=== PATIENT | male | born 1975 | race Caucasian/White ===

== ENCOUNTER 2016-08-18 11:10 | Day surgery (SDC) | payer OTHER ==
[2016-08-18] VITALS (16 sets, daily range): BP systolic 127–175; BP diastolic 54–87; PULSE 82–97; RESP 12–20; O2SAT 90–98
[~2016-08-18] VITALS: Ht 180.3 cm; Wt 135.0 kg
[2016-08-18] MEDS: CeFAZolin Inj 3 GM in IV Premix 1 EACH IV SCH ×2 (06:00→13:34)
--- NOTE | 2016-08-18 07:02 | PCM.HPANE ---
Patient Data Surgeon Admitting Provider: Attending Provider:Devaughn Nixon MD Primary Care Physician:Lore Gore MD Other Provider:Wendy Sorto Anesthesia Reason for Visit Gallstones Ht/WT & BMI Height (Feet): 6 Height (Inches): 0 Weight (Kilograms): 129.27 Body Mass Index 38.00 Allergies Coded Allergies: exenatide (Verified Allergy, Severe, pancreatitis, 08/15/16) Past Anesthesia History Anesthesia History: Denies:: Abnormal Airway, Anesthesia Reactions, Difficult Intubation, Fam Anesthesia Reaction, Fam Malignant Hypertherm, Malignant Hyperthermia Additional Information: Wakes up fighting and swinging fists per patient' Diabetes History Hx Diabetes?: Yes Type of Diabetes: Type II Glycemic Control: Insulin & Oral Medication MRSA MRSA: No Medications Reported Medications Diltiazem 120 Mg Mulgph602 Mg PO TID 03/07/16 Insulin Glargine (Lantus U100 Insulin Vial)100 Unit/Ml Vial90 Unit SUBQ Ref 0 09/01/15 Fenofibrate 150 Mg Ijuqwtv067 Mg PO DAILY 08/03/[address] 40 Mg Tablet.dr40 Mg PO DAILY Ref 0 12/08/14 Lisinopril / HCTZ 20-12.5 mg 1 Each Tablet1 Each PO DAILY Ref 0 12/08/14 [Vit C] No Conflict Ebaak011 Mg PO BID 12/08/14 [Vit D] No Conflict Check10,000 Iu PO DAILY 12/08/14 Aspirin 81 Mg Rzdzfg26 Mg PO DAILY Ref 0 12/08/14 Albuterol HFA (Proair HFA)8.5 Gm Hfa.aer.ad2 Puffs INHALATION Q4H 12/08/14 Albuterol Neb Soln 0.63 Mg/3 Ml Vial.neb0.63 Mg INHALATION Q4H PRN For Wheezing Ref 0 12/08/14 Atorvastatin (Lipitor)40 Mg Rgvobm19 Mg PO DAILY Ref 0 12/08/14 Metformin 500 Mg Tablet1,000 Mg PO BID Ref 0 12/08/14 Insulin Glargine (Lantus U100 Insulin Vial)100 Unit/Ml Vial60 Unit SUBQ BIDAC # 1 VIAL Ref 0 12/08/14 Insulin Lispro (HumaLOG U100 Insulin Pen)100 Unit/1 Ml Insuln.pen35 Unit SUBQ TIDWM Ref 0 Blood Sugar Lispro Correction <151 0 units 151-175 1 unit 176-200 2 units 201-225 3 units 226-250 4 units 251-275 5 units 276-300 6 units 301-325 7 units 326-350 8 units 351-375 9 units 376-400 10 units >400 12 units Check blood sugars before meals and at bedtime. Use correction factor only before meals. 12/08/14 History History of ENT Problems?: Yes HEENT History: Positive for:: Hearing Problem (OTITIS MEDIA, RIGHT SIDE) Sinus Problem (ALLERGIC RHINITIS) Denture Type: None Teeth Condition: Within Normal Limits Hx of Heart Problems?: Yes Cardiovascular History: Positive for:: Coronary Artery Disease (ELEVATED CHLORESTEROL) Hypertension Denies:: Pacemaker Hx of Respiratory Problem?: Yes Respiratory History: Positive for:: Asthma (EXCERCISE INDUCED) Use of Inhalers / NEBS Denies:: Pneumonia (HX OF BRONCHITIS) Use of C-PAP Machine (HAS APPT FOR SLEEP STUDY) Hx Neurologic Problems?: Yes Neurological History: Positive for:: Dizziness Hx of GI Problems?: No Hx of Problems?: No Male Hx: Denies:: Prostate Problems Scrotal Mass Testicular Surgery Skin History: Positive for:: History Skin Disorders? (SARCODOSIS in remission) Hx Musculoskeletal Problems?: Yes Musculoskeletal History: Positive for:: Musculoskeletal Trauma Osteoarthritis Hx of Psycho/Social Problems?: No Hx Surgeries?: Yes (SEE ABOVE) Hx Any Other Health Problems?: Yes Other History: Positive for:: Hospitalization (RIGHT CALF 1984,LEFT [id number] HAND 2001) Denies:: Cancer Endocrine Disease Hx Diabetes: Yes Hx Alcohol Use: Yes (VERY LITTLE)Hx Substance Use: No Smoking Status: Former Smoker Have You Smoked inLast 12 mo: No Stop/Bang S-Snoring: Do You Snore Loudly: Yes T-Tired: feel tired, fatigued: Yes O-Obsered: Observed not breath: Yes P-Blood Pressure: treated: Yes B- Body Mass Index > 35 kg/m2: No A- Age over 50: No N- Neck Large Circumference: No G- Gender Male: Yes IRENE Total Score: 5 Risk Assessment Category Category 1A: Patient has history of documented sleep apnea, and HAS NOT received any narcotic, sedative or anesthesia administration during this stay. Category 1B: Patient has history of documented sleep apnea, and HAS received any narcotic , sedative or anesthesia administration during this stay Category 2: Patient has SUSPECTED Obstructive Sleep Apnea, and HAS received any narcotic , sedative or anesthesia administration during this stay. Category 3: Patient has SUSPECTED Obstructive Sleep Apnea and HAS NOT received narcotic, sedative or anesthesia administration during this stay. Category 4: Outpatient in Procedural Areas with known sleep apnea or who screen positive for High Risk via the STOP/BANG questionnaire. Exam Exam General Appearance: Alert, Oriented X3, Cooperative, Moderate Distress HEENT/AIRWAY: MP 4, Neck Movement (Thick, 10% expected extension), Mouth Opening (Small) Lungs: Clear to Auscultation Heart: Exam Unremarkable Plan Impression Patient chart reviewed, patient interviewed and anesthestic plan with risks, benefits, and alternatives discussed, and informed consent obtained. NPO per Anesth. Guidelines: Yes ASA Physical Status: ASA3 Severe Disease Anesthetic Support Modalities: [place] Scope Anesthetic Plan: GA Bene/Risks/Altern/Consents: Yes HP Complete Prior to Induction: Yes Other [place] Scope will be set up in Room. If EZ to ventilate will do a Direct Laryngoscopy and chart the findings. Lee Bloom MD August 18, 2016 07:02
[~2016-08-18 11:10] MED LIST: ALBU0.63 INHALATION; ALBU8.5H2 INHALATION; ASPI-973 PO; DILT120T3 PO; FENO150C4 PO; INSU100I18 SUBQ; INSU100V7 SUBQ; LIP40 PO; LISI1TAB9 PO; Lactated Ringer's 1,000 ML IV SCH; METF500T4 PO; PANT40TA3 PO; VIT C PO; VIT D PO
[2016-08-18] MEDS ORDERED: Propofol 10,000 mCg/mL 20 mL Inj ONE (11:11)
[2016-08-18] MEDS ORDERED: Rocuronium 10 mg/mL 5 mL Inj ONE (11:11)
[2016-08-18] MEDS ORDERED: MeTOProlol 1 mg/mL 5 mL Inj ONE (11:11)
[2016-08-18] MEDS ORDERED: Neostigmine 1 mg/mL 10 mL Inj ONE (11:11)
[2016-08-18] MEDS ORDERED: Glycopyrrolate 0.2 MG/ML 1mL Inj ONE (11:11)
[2016-08-18] MEDS ORDERED: fentaNYL-PF 50 mCg/mL 2 mL Inj ONE ×2 (11:11→17:02)
[2016-08-18] MEDS ORDERED: LORazepam 1 mg Tablet PO PRN (12:30)
[2016-08-18] MEDS ORDERED: Lactated Ringer's 1,000 ML IV ONE (13:00)
[2016-08-18] MEDS ORDERED: Bupivacaine-MPF 0.25%/EPI 30 mL Inj INFILTRATE ONE (13:34)
[2016-08-18] MEDS ORDERED: Lactated Ringer's 500 ML IV PRN (13:56)
[2016-08-18] MEDS ORDERED: Lactated Ringer's 1,000 ML IV SCH (13:56)
[2016-08-18] MEDS ORDERED: Ondansetron 2 mg/mL 2 mL Inj IVPUSH PRN (14:00)
[2016-08-18] MEDS ORDERED: HYDROmorphone 1 mg/mL Inj IVPUSH PRN (14:00)
[2016-08-18] MEDS ORDERED: EPHEDrine Sulfate 50 mg/mL Inj IVPUSH PRN (14:00)
[2016-08-18] MEDS ORDERED: Atropine 0.4 mg/mL Inj IVPUSH PRN (14:00)
[2016-08-18] MEDS ORDERED: hydrALAZINE 20 mg/mL Inj IVPUSH PRN (14:00)
[2016-08-18] MEDS ORDERED: Labetalol 5 mg/mL 4 mL Inj IV PRN (14:00)
[2016-08-18] MEDS ORDERED: Phenylephrine 10,000 mCg/mL Inj IVPUSH PRN (14:00)
--- NOTE | 2016-08-18 15:24 | PCM.ANEP1 ---
Post Anesthesia PACU Phase 1 Assessment Vital Signs Vital Signs Date Time Temp Pulse Resp B/P Pulse Ox O2 Delivery O2 Flow Rate FiO2 08/18/16 12:21 36.8 82 18 134/70 95 Room Air Anesthetic Administered: GA Level of Alertness: Awake, talking REAL's with Equal Strength: Yes Pain: No Nausea or Vomiting: No CV Function & Hydration Stable: No Airway Device: Oxygen Delivery: Room Air Lungs: Normal Air Movement PACU Phase 2 Assessment Complications: No Follow up Care: No Patient Instructions Provided: N/A Lee Bloom MD August 18, 2016 15:24
--- NOTE | 2016-08-18 15:29 | OP ---
[address] [address] OPERATIVE REPORT PATIENT: ZEFERINO CHOWDHURY : 1975 MR#: [id number] ADMIT: 08/18/2016 JOB ID: [id number] DATE OF SURGERY: 08/18/2016 ANESTHESIA: General. PREOPERATIVE DIAGNOSIS(ES): 1. Symptomatic cholelithiasis. 2. Obesity. 3. Uncontrolled diabetes. POSTOPERATIVE DIAGNOSIS(ES): 1. Symptomatic cholelithiasis. 2. Obesity. 3. Uncontrolled diabetes. 4. Nodular cirrhosis of the liver. OPERATION: 1. Laparoscopic cholecystectomy. 2. Laparoscopic liver biopsy. SURGEON: Dr. Devaughn Nixon. HOT STICK MAN: Nabeel Grider PA-C (the expanded function dental assistant was required for the safe and timely completion of the case). COMPLICATIONS: None. ESTIMATED BLOOD LOSS: Less than 5 mL. CONDITION: Satisfactory. SPECIMEN: 1. Gallbladder. 2. Core needle biopsy of the liver. FINDINGS: The gallbladder appeared relatively unremarkable. The liver was grossly nodular consistent in appearance with cirrhosis. INDICATIONS/SIGNIFICANT HISTORY: The patient is an obese man with a BMI of 42 and poorly controlled diabetes with a hemoglobin A1c greater than 11 who has been experiencing postprandial right upper quadrant abdominal pain. He underwent an ultrasound which demonstrated cholelithiasis. At one point, he was scheduled for a laparoscopic cholecystectomy at another facility for concern of acute cholecystitis but this was canceled due to blood sugar of over 300. He was eventually referred to me as an outpatient and I recommended laparoscopic cholecystectomy. OPERATIVE TECHNIQUE: The patient was taken into the operating room and placed in the supine position. General anesthesia was administered and perioperative antibiotics were given. Insulin was also administered for an elevated blood sugar. The abdomen was prepped and draped in a standard surgical fashion and a procedural pause was performed. Entry was gained into the abdomen through a supraumbilical incision using a 10 mm Optiview trocar. Pneumoperitoneum was achieved without complication. Local anesthetic was injected, followed by insertion of 5 mm ports in the subxiphoid as well as two in the right upper quadrant. The gallbladder was a little distended and therefore, we aspirated this to facilitate grasping it. I then began my dissection to identify the cystic structures. Eventually a critical view of safety was achieved. A single clip was placed on the cystic artery and three on the cystic duct. The artery was taken with cautery and the duct was taken sharply. A small hole was made in the gallbladder while dissecting the gallbladder off the cystic plate and a small amount of bile drained. The remainder of the dissection of the gallbladder off the cystic plate was then completed and the gallbladder placed in an EndoCatch bag. The surgical bed was copiously irrigated and cleaned. The gallbladder was removed through the umbilical port site. I then made a small stab incision in the right upper quadrant over the liver and used a 14-gauge Avery-Cut needle. Biopsy was taken in two passes to get two cores. The liver surface bleeding was controlled using electrocautery. The fascia at the umbilical port site was then closed using 0 PDS suture with laparoscopic suture passer. The lateral ports removed under direct visualization followed by release of pneumoperitoneum and removal of the remaining port. The entire procedure was well tolerated without complication.
[2016-08-18] MEDS: fentaNYL-PF 50 mCg/mL 2 mL Inj IVPUSH PRN ×2 (17:08→17:26)
[2016-08-18] MEDS: oxyCODONE-Acetamin 5-325 mg Tablet PO PRN ×2 (17:14→21:34)
--- NOTE | 2016-08-18 18:06 | NUR ---
Post-Op Note Pt transferred from PACU via thad to [facility] Rm 1017. Report received from Racquel BENITEZ from PACU. Pt able to transfer self to hospital bed. Oxygen at 4L NC. Pain reported at 06/03. IV SL. Pt AAOX3, VSS, continuous pulse ox. Addendum: 08/18/16 at 1814 by LAILA KELLEY Pt arrived at approx. 1745. Addendum: 08/18/16 at 1819 by PARK ROCA RN Agree w/ above SN2 note
[2016-08-18] MEDS ORDERED: Albuterol 1.25 mg/3 mL Inhalation Solution NEB PRN (18:30)
[2016-08-18] MEDS: Albuterol 2.5 mg/3 mL Inhalation Solution NEB SCH ×2 (19:00→23:00)
[2016-08-18] MEDS ORDERED: Insulin GLARgine 100 Unit/mL Syringe SUBQ SCH (21:00)
[2016-08-18] MEDS: Ascorbic Acid 500 mg Tablet PO SCH (21:03)
[2016-08-18] MEDS: Insulin LISPRO High-Dose Scale SUBQ SCH (21:21)
[2016-08-19 00:37] VITALS: BP 148/80; PULSE 89; RESP 20; O2SAT 97
--- NOTE | 2016-08-19 03:28 | NUR ---
Activity/ MD paged During shift rounding, day shift RN and this RN discussed with pt. about if wanting to stay the night. Pt. and significant other agreed to stay the night. Hussain notified and paged. Pt. was able to be weaned down on 2 liters of oxygen via nc. Becomes apneic while sleeping on RA, so left on 2 liters of oxygen via nc while asleep. Pt. reported 6/10 pain earlier in shift. 1 tab Percocet PO given. Significant other in room. Will continue to monitor.
[2016-08-19] MEDS: oxyCODONE-Acetamin 5-325 mg Tablet PO PRN ×2 (04:14→08:53)
[2016-08-19] MEDS: Albuterol 2.5 mg/3 mL Inhalation Solution NEB SCH ×2 (04:43→07:43)
[2016-08-19 04:44] VITALS: PULSE 63; RESP 18; O2SAT 98
[2016-08-19 04:55] VITALS: BP 162/84; PULSE 91; RESP 17; O2SAT 97
[2016-08-19] MEDS ORDERED: Pantoprazole 40 mg ER24 Tablet PO SCH (06:30)
[2016-08-19 07:30] VITALS: PULSE 100; RESP 20; O2SAT 97
[2016-08-19] MEDS ORDERED: Insulin GLARgine 100 Unit/mL Syringe SUBQ SCH (07:30)
[2016-08-19] MEDS: Insulin LISPRO High-Dose Scale SUBQ SCH (08:31)
[2016-08-19] MEDS: Ascorbic Acid 500 mg Tablet PO SCH (08:33)
[2016-08-19 08:38] VITALS: BP 154/80; PULSE 100; RESP 16; O2SAT 92
--- NOTE | 2016-08-19 08:49 | PCM.DISURG ---
Surgical Discharge Instruction Date of Service August 19, 2016 Dates of Hospitalization Date of Hospital Admission Gallstones, IRENE, DM Providers Admitting Physician: Primary Care Physician: Lore Gore MD Attending Physician: Devaughn Nixon MD Diet Discharge Diet: Low fat, Diabetic Activity Discharge Activity-General: Be up and about, Balance rest and activity Dressing and Incisional Care Dressing Care: Allow Steri Stripes to fall off Hygiene: May shower, NO bathtub, hot tub or whirlpool Follow Up Plan Follow Up Plan Follow up with surgical PA in 3-4 weeks Call your provider for: Fever, Chills, Increasing abdominal pain, Nausea, Vomiting Devaughn Nixon MD August 19, 2016 08:49
[2016-08-19] MEDS ORDERED: OXYC5CAP4 PO (08:52)
--- NOTE | 2016-08-19 09:11 | PROG NOTE ---
[address] [address] PROGRESS NOTE PATIENT: ZEFERINO CHOWDHURY : 1975 MR#: [id number] ADMIT: 08/18/2016 JOB ID: [id number] DATE: 08/19/2016 SUBJECTIVE: The patient is seen on postoperative day one from laparoscopic cholecystectomy and laparoscopic liver biopsy. The patient was admitted due to concerns for sleep apnea, obesity and heavy sedation after surgery. He tells me this morning, he is feeling fine and is ready to go home. He is having a little bit of incisional pain, but otherwise doing well. OBJECTIVE: He has remained afebrile, a little bit hypertensive, but otherwise hemodynamically normal. This morning, he is alert, oriented and comfortable. His abdomen is soft, nontender, nondistended. His incisions look fine. ASSESSMENT: This is a 41-year-old poorly controlled diabetic with significant obesity and sleep apnea, postoperative day one from laparoscopic cholecystectomy. PLAN: The patient can go home today. He has been given a prescription for oxycodone. He will follow up with either myself or the PA in 3-4 weeks. I will call him with the results of the liver biopsy.
--- NOTE | 2016-08-19 09:42 | NUR ---
Discharge Pt was d/c'd from [facility] room 1017 at 0900 home via private vehicle with family. sheet metal shop helper did all discharge teaching and instructions. Hard copy of RX with pt. No items in the safe or pharmacy. Pt was up independently to the bathroom and pain was controlled with po pain medication.
--- NOTE | 2016-08-19 14:47 | PCM.DC.SUR ---
Discharge Summary Date of Service: August 19, 2016 Date of Hospital Admission: August 18, 2016 Date of Operation(s): August 18, 2016 Date of Discharge: August 19, 2016 at 09:16 Diagnosis at Time of Discharge 1. Symptomatic cholelithiasis status post laparoscopic cholecystectomy. 2. Obesity. 3. Uncontrolled diabetes. 4. Nodular cirrhosis of the liver. Problems: Operation laparoscopic cholecystectomy and laparoscopic liver biopsy Brief History and Physical: History: The patient is an obese man with a BMI of 42 and poorly controlled diabetes with a hemoglobin A1c greater than 11 who has been experiencing postprandial right upper quadrant abdominal pain. He underwent an ultrasound which demonstrated cholelithiasis. At one point, he was scheduled for a laparoscopic cholecystectomy at another facility for concern of acute cholecystitis but this was canceled due to blood sugar of over 300. He was eventually referred to me as an outpatient and I recommended laparoscopic cholecystectomy. Physical: He has remained afebrile, a little bit hypertensive, but otherwise hemodynamically normal. This morning, he is alert, oriented and comfortable. His abdomen is soft, nontender, nondistended. His incisions look fine. Consultants: None Hospital Course: The patient was admitted and taken to the operating room for a planned laparoscopic cholecystectomy. Intraoperatively, decision was made to perform laparoscopic biopsy of his liver. Please refer to operative notes for further details. He was then transferred to his hospital room where he remained for the balance of his hospital stay. Intitially the patient was scheduled to be released to home on the day of surgery however the patient was noted to require supplemental oxygen via nasal cannula. Decision was made to allow the patient to remain in the hospital overnight. On postoperative day #1 he was noted to have good pain control and using the bathroom without difficulty. His breathing was improved and he was ambulating without difficulty. He was then discharged to home in stable condition. Pathology: Pending for both gallbladder and liver biopsy Disposition: Home in stable condition Follow-up Plan: Low fat, Diabetic diet Activity: be up and about, Balance rest and activity Allow Steri Stripes to fall off. May shower, NO bathtub, hot tub or whirlpool Follow up with surgical PA in 3-4 weeks Call provider for Fever, Chills, Increasing abdominal pain, Nausea, Vomiting ([Vit D]) 10,000 IU PO DAILY (Reported) ([Vit C]) 500 MG PO BID (Reported) Albuterol HFA (Proair HFA) 8.5 Gm Hfa.aer.ad 2 PUFFS INHALATION Q4H (Reported) Albuterol Neb Soln (Albuterol Neb Soln) 0.63 Mg/3 Ml Vial.neb 0.63 MG INHALATION Q4H PRN PRN For Wheezing (Reported) Aspirin (Aspirin) 81 Mg Tablet 81 MG PO DAILY (Reported) Atorvastatin (Lipitor) 40 Mg Tablet 40 MG PO DAILY (Reported) Diltiazem (Diltiazem) 120 Mg Tablet 120 MG PO TID (Reported) Fenofibrate (Fenofibrate) 150 Mg Capsule 150 MG PO DAILY (Reported) Insulin Glargine (Lantus U100 Insulin Vial) 100 Unit/Ml Vial 60 UNIT SUBQ BIDAC (Reported) Insulin Glargine (Lantus U100 Insulin Vial) 100 Unit/Ml Vial 90 UNIT SUBQ ( Reported) Insulin Lispro (HumaLOG U100 Insulin Pen) 100 Unit/1 Ml Insuln.pen 35 UNIT SUBQ TIDWM (Reported) Blood Sugar Lispro Correction <151 0 units 151-175 1 unit 176-200 2 units 201-225 3 units 226-250 4 units 251-275 5 units 276-300 6 units 301-325 7 units 326-350 8 units 351-375 9 units 376-400 10 units >400 12 units Check blood sugars before meals and at bedtime. Use correction factor only before meals. Lisinopril / HCTZ 20-12.5 mg (Lisinopril / HCTZ 20-12.5 mg) 1 Each Tablet 1 EACH PO DAILY (Reported) Metformin (Metformin) 500 Mg Tablet 1,000 MG PO BID (Reported) Pantoprazole (Pantoprazole DR) 40 Mg Tablet.dr 40 MG PO DAILY (Reported) oxyCODONE (oxyCODONE) 5 Mg Capsule 5 MG PO q6 PRN PRN For Pain copies to: Lore Gore MD, Samuel L PA-C August 19, 2016 14:47
--- NOTE | 2016-08-25 15:53 | PATH ---
SURGICAL PATHOLOGY Attending Physician:Devaughn Nixon MD CASE STATUS: Signed Out PATIENT NAME: ZEFERINO CHOWDHURY PID: [id number] : 1975 DATE COLLECTED:08/18/2016 00:00 SPECIMEN: 1: Gallbladder 2: Liver, Needle Biopsy CLINICAL HISTORY: GALLSTONES 1). GALLBLADDER 2). LIVER BIOPSY FINAL DIAGNOSIS: 1.GALLBLADDER, CHOLECYSTECTOMY: MILD CHRONIC CHOLECYSTITIS WITH CHOLESTEROLOSIS. NO CALCULI IDENTIFIED. Negative for dysplasia and malignancy. 2.LIVER, CORE NEEDLE BIOPSY: 1. MODERATE STEATOSIS, PREDOMINATELY MACROVESICULAR (APPROXIMATELY 50%). 2. NO EVIDENCE OF CHRONIC OR ACTIVE HEPATITIS. 3. NO EVIDENCE OF CIRRHOSIS, SEE COMMENT. ICD10 K76.0 NOTE: Although mild portal fibrous expansion and rare portal-portal septae are noted in some of the portal tracts, biopsies taken near the liver capsule can sometimes show increased fibrosis in otherwise normal liver. These results should be interpreted in the context of other clinical findings, laboratory studies and surgical impression. The clinical history of metabolic syndrome is noted. The histologic appearance raises the consideration of nonalcoholic fatty liver disease (NAFLD), if alcohol and medication-related injury are excluded. GROSS DESCRIPTION: The specimen is received in two formalin filled containers labeled with the patient's name. 1). The specimen is sublabeled "gallbladder" and consists of an opened 7.0 x 3.0 x 1.1 CM gallbladder. The serosa is smooth. The cystic duct is possibly identified. The wall is 0.2-0.3 CM in thickness. The mucosa is a dark pink-owusu to green owusu in color. The mucosa has multiple light yellow-owusu slightly raised and rough areas. The lumen contains a dark green mucoid material and no calculi are noted. 5 used equipment sales representative sections are submitted in cassette 1A. 2). The specimen is sublabeled "liver" and consists of 2 dark owusu cylindrical shaped portions of tissue which aggregate to 2.1 x 0.2 x 0.1 CM. The specimen is entirely submitted in cassette 2A. 08/19/2016 DAC MICRO DESCRIPTION: Core biopsies of liver parenchyma show moderate panacinar steatosis, predominately macrovesicular (approximately 50%). There is mild portal fibrous expansion, with rare portal-portal septae, highlighted by reticulin stain. No lobular lymphohistiocytic or neutrophilic inflammatory foci are identified. No ballooned hepatocytes, Jenniffre-Denk bodies, acidophil bodies, or ground glass nuclei are identified. There is no perivenular/pericellular fibrosis, confirmed by trichrome stain. No abnormal iron deposition is present, confirmed by iron stain. No abnormal PAS positive, diastase-resistant intrahepatocytic globules are identified. There is no evidence of a neoplastic proliferation of cells. All control stains showed appropriate reactivity. ICD-9 CODES: CPT CODES: 1: 21810 2: 96250, 09315, 09127, 39287, 31868 Electronically Signed Out Susan Levy MD [facility] Pathology [facility] [address], [place] [address] Technical component performed at [facility], [address], [place], [address]
== END 2016-08-19 09:16 | disposition home or self-care (01) ==
LOC: SAS 11:10 → OSC 17:58 → SAS 08-19 09:16
PROVIDERS: ATTEND General Practice
DX: K80.10 Calculus of gallbladder with chronic cholecystitis without obstruction (principal); K76.0 Fatty (change of) liver, not elsewhere classified; I10 Essential (primary) hypertension; E78.00 Pure hypercholesterolemia, unspecified; E11.21 Type 2 diabetes mellitus with diabetic nephropathy; E11.65 Type 2 diabetes mellitus with hyperglycemia; G47.33 Obstructive sleep apnea (adult) (pediatric); J45.909 Unspecified asthma, uncomplicated; M19.90 Unspecified osteoarthritis, unspecified site; E66.01 Morbid (severe) obesity due to excess calories; Z87.891 Personal history of nicotine dependence; Z79.82 Long term (current) use of aspirin; Z79.84 Long term (current) use of oral hypoglycemic drugs; Z79.4 Long term (current) use of insulin; Z68.41 Body mass index [BMI] 40.0-44.9, adult
CPT/HCPCS: 47379; 47562; 94640; 94664; J0690; J1815; J2250; J2710; J3010; J7120; J7613